=== PATIENT | male | born 1985 | race Hispanic/Latino ===

== ENCOUNTER 2018-09-02 15:26 | Emergency (ER) | payer OTHER ==
[~2018-09-02] VITALS: Ht 175.3 cm; Wt 79.1 kg
[2018-09-02] MEDS ORDERED: LEVO100T5 PO (15:36)
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
[2018-09-02] MEDS ORDERED: LIDOCAINE 2% W/EPIN INJ 20ML **PRES FREE INJ ONE (17:15)
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
[2018-09-02 18:09] VITALS: BP 138/74
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
== END 2018-09-02 18:11 | disposition home or self-care (01) ==
LOC: M ED 15:26
DX: S01.81XA Laceration without foreign body of other part of head, initial encounter (principal); W22.8XXA Striking against or struck by other objects, initial encounter; Y92.019 Unspecified place in single-family (private) house as the place of occurrence of the external cause